=== PATIENT | female | born 1940 | race Caucasian/White ===

== ENCOUNTER 2023-09-03 10:52 | Outpatient (AMB) | payer OTHER, MEDICARE, SELFPAY ==
[2023-09-03 11:31] VITALS: BP 132/60; PULSE 91; O2SAT 93; BMI 27.1
--- NOTE | 2023-09-03 11:31 | HO.NEPHOV ---
HPI HPI Comments History of Present Illness Details I had the privilege of seeing Cassie in consultation for her chronic kidney disease and hypertension. 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 She has longstanding hypertension and is on multiple antihypertensive medications. She has been having edema. Her blood pressure has been at goal. She does not recollect having Doppler of renal arteries. She denies coronary artery disease, carotid stenosis, congestive heart failure, CVA, peripheral arterial disease. She does not have any epistaxis, photosensitivity, hematuria, nephrolithiasis, joint swellings, bone or back pain. She has no history of high serum calcium. She is compliant with her medications. She does not have any orthostatic symptoms. She does not have any shortness of breath, paroxysmal nocturnal dyspnea, orthopnea. She does not take nonsteroidal anti-inflammatories. She otherwise feels well. FORMERLY [facility] Medical History (Updated 09/03/23 @ 13:21 by Rafita Lucas MD) Degenerative joint disease Chronic kidney disease, stage 3 Essential (primary) hypertension Restless leg Mixed hyperlipidemia Hypothyroidism Surgical History (Updated 09/03/23 @ 11:31 by Penny Yepez MA) H/O hernia repair History of partial hysterectomy Family History (Updated 09/03/23 @ 11:35 by Penny Yepez MA) Mother Heart disease Sister Cancer Social History (Updated 09/03/23 @ 11:35 by Penny Yepez MA) Alcohol intake: never Patient Tobacco Use Status: Never used Tobacco Vital Signs 09/03/23 11:31 Height 5 ft 4 in Weight 158 lb BMI 27.1 BP 132/60 Blood Pressure Location Rt brachial Position Sitting Pulse 91 Pulse Source Pulse Oximeter Pulse Oximetry (%) 93 Oxygen Delivery Method Room Air Physical Exam Vital Signs: Last Vital Signs Pulse 91 09/03/23 11:31 BP 132/60 09/03/23 11:31 Pulse Ox 93 09/03/23 11:31 Oxygen Delivery Method Room Air 09/03/23 11:31 BMI result Body Mass Index 27.1 Const General: comfortable and no acute distress Orientation/consciousness: patient oriented x3 HEENT Head: Yes normocephalic Mouth: Normal oral and palatal mucosa present Eyes EOM: EOMs intact bilaterally Neck Neck: Yes supple Resp Auscultation: clear to auscultation bilaterally Cardio Jugular venous distension: no JVD Rate: regular rate GI Palpation (GI): Soft to palpation Auscultation: normal bowel sounds General: Yes no CVA tenderness Back/Spine/Pelvis Back: no CVA tenderness Skin General skin exam: no rashes or lesions noted Neuro General: patient oriented x3 and moves all extremities Extrem General: Yes edema Assessment & Plan Assessment & Plan (1) Essential (primary) hypertension: Code(s): I10 - Essential (primary) hypertension (2) Chronic kidney disease, stage 3: Code(s): N18.30 - Chronic kidney disease, stage 3 unspecified Qualifiers: Chronic kidney disease stage 3 subtype: stage 3a (GFR 45-59) Qualified Code(s): N18.31 - Chronic kidney disease, stage 3a Plan Cassie most likely has chronic kidney disease from vascular disease and age related loss of renal functions. I did not have any recent blood work for review and hence I ordered lab work which she is going to get it done today. I also ordered Doppler of her renal arteries given she is on losartan, amlodipine and metoprolol to control blood pressure. She has been having edema which may be due to amlodipine but I have ordered serum albumin as well as urine protein creatinine ratio. I did not make any medication changes today. I intend to discontinue her amlodipine and optimize her antihypertensive medications with evolving data. More than 50% time spent discussing all these and I answered all her questions. Follow-up appointment given. Orders: Orders Blood Urea Nitrogen Today I10 - Essential (primary) hypertension, N18.30 - Chronic kidney disease, stage 3 unspecified Electrolytes Today I10 - Essential (primary) hypertension, N18.30 - Chronic kidney disease, stage 3 unspecified Calcium Today I10 - Essential (primary) hypertension, N18.30 - Chronic kidney disease, stage 3 unspecified Complete Blood Count Auto Diff Today I10 - Essential (primary) hypertension, N18.30 - Chronic kidney disease, stage 3 unspecified Parathyroid Hormone Intact Today I10 - Essential (primary) hypertension, N18.30 - Chronic kidney disease, stage 3 unspecified Phosphorus Today I10 - Essential (primary) hypertension, N18.30 - Chronic kidney disease, stage 3 unspecified Immunofixation, Random Urine Today I10 - Essential (primary) hypertension, N18.30 - Chronic kidney disease, stage 3 unspecified Creatinine Today I10 - Essential (primary) hypertension, N18.30 - Chronic kidney disease, stage 3 unspecified US renal BI Today I10 - Essential (primary) hypertension, N18.30 - Chronic kidney disease, stage 3 unspecified US renal doppler Today I10 - Essential (primary) hypertension, N18.30 - Chronic kidney disease, stage 3 unspecified Immunofixation Pnl, Serum Today I10 - Essential (primary) hypertension, N18.30 - Chronic kidney disease, stage 3 unspecified Protein Creatinine Ratio, Ur Today I10 - Essential (primary) hypertension, N18.30 - Chronic kidney disease, stage 3 unspecified Albumin Level Today I10 - Essential (primary) hypertension, N18.30 - Chronic kidney disease, stage 3 unspecified Coding Level of Care Code New Pt Level 4 (01172) Diagnoses Essential (primary) hypertension I10 Stage 3a chronic kidney disease N18.31 Chronic kidney disease stage 3 subtype: stage 3a (GFR 45-59) Results Reviewed Nephrology Results: No Data to Display
== END 2023-09-03 12:05 | disposition home or self-care (01) ==
PROVIDERS: Visit Provider Internal Medicine Nephrology
DX: I10 Essential (primary) hypertension (principal); N18.31 Chronic kidney disease, stage 3a
CPT/HCPCS: 99204

== ENCOUNTER → 2023-09-03 10:52 | Outpatient (BNVA) | payer OTHER, MEDICARE, SELFPAY | PROVIDERS: Visit Provider Internal Medicine Nephrology ==

== ENCOUNTER 2023-09-03 12:29 | Outpatient (REF) | payer OTHER, MEDICARE, SELFPAY ==
[2023-09-03 13:26] LABS: MANUAL DIFF FLAG NO
[2023-09-03 13:59] LABS: Basophils Absolute Auto 0.1 X10*3/uL (0.0-0.2); Basophils Percent Auto 0.6 % (0-2); Eosinophils Absolute Auto 0.1 X10*3/uL (0.0-0.4); Eosinophils Percent Auto 0.9 % (0-4); Hematocrit 41.5 % (37.0-47.0); Hemoglobin 14.3 g/dl (12.0-16.0); Imm Gran Abs Auto 0.04 X10*3/uL (0.00-0.03); Imm Gran Pct Auto 0.4 % (0.0-0.4); Lymphocytes Absolute Auto 1.2 X10*3/uL (1.2-4.9); Lymphocytes Percent Auto 10.8 % (20-40); Mean Corpuscular HGB Conc 34.5 g/dl (31.0-35.0); Mean Corpuscular Hemoglobin 32.6 pg (27.0-33.0); Mean Corpuscular Volume 94.7 fL (80.0-98.0); Mean Platelet Volume 10.4 fL (9.4-12.3); Neutrophils Absolute Auto 8.8 x10*3/uL (2.0-8.3); Neutrophils Percent Auto 78.3 % (45-73); Platelet Count 298 X10*3/uL (160-400); Red Blood Count 4.38 X10*6/uL (4.20-5.50); White Blood Count 11.2 X10*3/uL (4.8-10.8)
[2023-09-03 14:28] LABS: Parathyroid Hormone Intact 52.5 pg/mL (8.7-77.1)
[2023-09-03 14:35] LABS: Albumin Level 4.6 g/dL (3.5-5.0); Anion Gap 14 (12-20); Blood Urea Nitrogen 18 mg/dL (9-16); Calcium 10.2 mg/dL (8.4-10.2); Carbon Dioxide 26 mmol/L (22-29); Chloride 102 mmol/L (96-108); Estimated Glomerular Filt Rate 40; Phosphorus 3.5 mg/dL (2.7-4.5); Potassium 4.6 mmol/L (3.3-5.1); Sodium 137 mmol/L (135-145)
[2023-09-05 11:34] LABS: IgA 251 mg/dL (70-320); IgG 1078 mg/dL (600-1540); IgM 120 mg/dL (50-300)
== END 2023-09-03 12:30 | disposition home or self-care (01) ==
LOC: HO.10HDL 12:29
PROVIDERS: Visit Provider Internal Medicine Nephrology
DX: I12.9 Hypertensive chronic kidney disease with stage 1 through stage 4 chronic kidney disease, or unspecified chronic kidney disease (principal); N18.30 Chronic kidney disease, stage 3 unspecified
CPT/HCPCS: 36415; 80051; 82040; 82310; 82565; 82784; 83970; 84100; 84520; 85025; 86334

== ENCOUNTER 2023-09-19 09:00 | Outpatient (REF) | payer MEDICARE, SELFPAY ==
--- NOTE | ~2023-09-19 | US_ITS ---
EXAMINATION: US RETROPERITONEAL LIMITED (RENAL ONLY) CLINICAL INFORMATION: Chronic kidney disease stage III. COMPARISON: None available. TECHNIQUE: Grayscale and color imaging of the kidneys using a curved transducer. Color Doppler imaging of the renal vasculature including waveform spectral analysis. FINDINGS: RIGHT KIDNEY: 10 x 4 x 4.7 cm (SAG x AP x TRV). The kidney is normal in size, contour, and echogenicity. Renal cortical thickness is normal. 2 simple cysts measuring 2.7 x 2 x 2 cm in the lower pole and 1.5 x 1.4 x 1.5 cm in the upper pole. No imaging follow-up recommended. No calculi or focal other parenchymal lesions. No hydronephrosis. LEFT KIDNEY: 9.6 x 4.7 x 3.8 cm (SAG x AP x TRV). The kidney is normal in size, contour, and echogenicity. Renal cortical thickness is normal. No calculi or focal parenchymal lesions. No hydronephrosis. Renal Doppler: Aortic peak systolic velocities 86 cm/s. The right renal artery is patent. Right renal artery peak systolic velocities measure 59, 176 and 84 cm/s proximally, in the midportion and distally. Right renal artery peak systolic velocity is upper normal in the midportion. Right renal artery to aorta ratio is normal and measures 2. Resistive indices of the segmental renal arteries and the right kidney measured 0.8-0.9 and are slightly elevated. Left renal artery peak systolic velocities are normal measure to 126, 102 and 106 cm/s proximally, in the midportion and distally. Left renal artery to aorta ratio is normal and measures 1.5. Resistive indices of the left segmental renal arteries and the the left kidney are normal in measure 0.7-0.8. US/US renal doppler IMPRESSION: Morphologically normal-appearing kidneys. Upper normal right renal artery peak systolic velocity and slightly elevated resistive indices. Normal left renal Doppler exam.
== END 2023-09-19 09:01 | disposition home or self-care (01) ==
LOC: HO.US 09:00
PROVIDERS: Visit Provider Internal Medicine Nephrology
DX: I12.9 Hypertensive chronic kidney disease with stage 1 through stage 4 chronic kidney disease, or unspecified chronic kidney disease (principal); N18.30 Chronic kidney disease, stage 3 unspecified
CPT/HCPCS: 76775; 93975

== ENCOUNTER 2023-10-08 14:15 | Outpatient (AMB) | payer OTHER, MEDICARE, SELFPAY ==
[2023-10-08 14:17] VITALS: BP 122/60; PULSE 77; O2SAT 95; BMI 27.7
--- NOTE | 2023-10-08 14:17 | HO.NEPHOV_ITS ---
Vital Signs 10/08/23 14:17 Height 5 ft 4 in Weight 161 lb 6 oz BMI 27.7 BP 122/60 Blood Pressure Location Rt brachial Position Sitting Pulse 77 Pulse Source Pulse Oximeter Pulse Oximetry (%) 95 Oxygen Delivery Method Room Air Intake Visit Reasons: 1 mo fu w/ abs/ Confirmed Data Analytics Specialist Required: No Accompanied by: Daughter Allergies lisinopril Adverse Reaction (Verified 10/08/23 14:20) Cough HPI Comments Details: I had the privilege of seeing Cassie in follow up for her chronic kidney disease and hypertension. She has longstanding hypertension and is on multiple antihypertensive medications. She has been having edema. Her blood pressure has been at goal. She had Renal USS and Doppler of renal arteries which showed only renal cysts as well as elevated resistive indices . She denies coronary artery disease, carotid stenosis, congestive heart failure, CVA, peripheral arterial disease. She does not have any epistaxis, photosensitivity, hematuria, nephrolithiasis, joint swellings, bone or back pain. She has no history of high serum calcium. She is compliant with her medications. She does not have any orthostatic symptoms. She does not have any shortness of breath, paroxysmal nocturnal dyspnea, orthopnea. She does not take nonsteroidal anti-inflamm atories. She otherwise feels well. FORMERLY [facility], [facility] Medical History (Updated 09/03/23 @ 13:21 by Rafita Lucas MD) Degenerative joint disease Chronic kidney disease, stage 3 Essential (primary) hypertension Restless leg Mixed hyperlipidemia Hypothyroidism Surgical History H/O hernia repair History of partial hysterectomy Family History Mother Heart disease Sister Cancer Social History Alcohol intake: never Patient Tobacco Use Status: Never used Tobacco Physical Exam Vital Signs: Last Vital Signs Pulse 77 10/08/23 14:17 BP 122/60 10/08/23 14:17 Pulse Ox 95 10/08/23 14:17 Oxygen Delivery Method Room Air 10/08/23 14:17 BMI result Body Mass Index 27.7 Const General: comfortable and no acute distress Orientation/consciousness: patient oriented x3 HEENT Head: Yes normocephalic Mouth: Normal oral and palatal mucosa present Eyes EOM: EOMs intact bilaterally Neck Neck: Yes supple Resp Auscultation: clear to auscultation bilaterally Cardio Jugular venous distension: no JVD Rate: regular rate GI Palpation (GI): Soft to palpation Auscultation: normal bowel sounds General: Yes no CVA tenderness Back/Spine/Pelvis Back: no CVA tenderness Skin General skin exam: no rashes or lesions noted Neuro General: patient oriented x3 and moves all extremities Extrem General: Yes no pedal edema Results Reviewed Nephrology Results: Hgb 14.3 g/dl (12.0-16.0) 09/03/23 WBC 11.2 X10*3/uL (4.8-10.8) H 09/03/23 Plt Count 298 X10*3/uL (160-400) 09/03/23 Sodium 137 mmol/L (135-145) 09/03/23 Potassium 4.6 mmol/L (3.3-5.1) 09/03/23 Chloride 102 mmol/L (96-108) 09/03/23 Carbon Dioxide 26 mmol/L (22-29) 09/03/23 BUN 18 mg/dL (9-16) H 09/03/23 Creatinine 1.27 mg/dL (0.5-1.4) 09/03/23 Calcium 10.2 mg/dL (8.4-10.2) 09/03/23 Phosphorus 3.5 mg/dL (2.7-4.5) 09/03/23 PTH Intact 52.5 pg/mL (8.7-77.1) 09/03/23 Renal US 09/19/23 Assessment & Plan Assessment & Plan (1) Chronic kidney disease, stage 3: Code(s): N18.30 - Chronic kidney disease, stage 3 unspecified Category: Medical Qualifiers: Chronic kidney disease stage 3 subtype: stage 3a (GFR 45-59) Qualified Code(s): N18.31 - Chronic kidney disease, stage 3a (2) Essential (primary) hypertension: Code(s): I10 - Essential (primary) hypertension Category: Medical Plan Cassie most likely has chronic kidney disease from vascular disease and age related loss of renal functions. Doppler of her renal arteries showed high resistive indices. She is bothered by the edema by the end of the day from Amlodipine. I reduced her Amlodipine to 5 mg and increased her metoprolol to 50 mg daily. I shall try to wean her off Amlodipine if possible. I did not make any other medication changes today. Follow-up appointment given. Coding Level of Care Code Est Pt Level 4 (43334) Diagnoses Stage 3a chronic kidney disease N18.31 Chronic kidney disease stage 3 subtype: stage 3a (GFR 45-59) Essential (primary) hypertension I10
== END 2023-10-08 14:53 | disposition home or self-care (01) ==
PROVIDERS: Visit Provider Internal Medicine Nephrology
DX: N18.31 Chronic kidney disease, stage 3a (principal); I10 Essential (primary) hypertension
CPT/HCPCS: 99214

== ENCOUNTER → 2023-10-08 14:15 | Outpatient (BNVA) | payer OTHER, MEDICARE, SELFPAY | PROVIDERS: Visit Provider Internal Medicine Nephrology ==

== ENCOUNTER 2024-02-06 10:01 | Outpatient (AMB) | payer OTHER, MEDICARE, SELFPAY ==
--- NOTE | 2024-02-06 10:18 | HO.NEPHOV ---
Vital Signs 02/06/24 10:19 Height 5 ft 4 in Weight 153 lb 4 oz BMI 26.3 BP 160/60 H Blood Pressure Location Rt brachial Position Sitting Pulse 75 Pulse Source Pulse Oximeter Pulse Oximetry (%) 93 Oxygen Delivery Method Room Air Intake Visit Reasons: Ckd stg 3/ 4 MO FU- Conf Media Sales Representative Required: No Accompanied by: Self / Same As Patient Allergies lisinopril Adverse Reaction (Verified 02/06/24 10:21) Cough HPI Comments Details: I had the privilege of seeing Cassie in follow up for her chronic kidney disease and hypertension. She has longstanding hypertension and is on multiple antihypertensive medications. Her blood pressure has been at goal. She had Renal USS and Doppler of renal arteries which showed only renal cysts as well as elevated resistive indices . She denies coronary artery disease, carotid stenosis, congestive heart failure, CVA, peripheral arterial disease. She does not have any epistaxis, photosensitivity, hematuria, nephrolithiasis, joint swellings, bone or back pain. She has no history of high serum calcium. She is compliant with her medications. She does not have any orthostatic symptoms. She does not have any shortness of breath, paroxysmal nocturnal dyspnea, orthopnea. She does not take nonsteroidal anti-inflammatories. She otherwise feels well. FORMERLY [facility] Medical History (Updated 09/03/23 @ 13:21 by Rafita Lucas MD) Degenerative joint disease Chronic kidney disease, stage 3 Essential (primary) hypertension Restless leg Mixed hyperlipidemia Hypothyroidism Surgical History H/O hernia repair History of partial hysterectomy Family History Mother Heart disease Sister Cancer Social History Alcohol intake: never Patient Tobacco Use Status: Never used Tobacco Review of Systems Const All systems reviewed & are unremarkable except as noted in HPI and below Physical Exam Vital Signs: Last Vital Signs Pulse 75 02/06/24 10:19 BP 160/60 H 02/06/24 10:19 Pulse Ox 93 02/06/24 10:19 Oxygen Delivery Method Room Air 02/06/24 10:19 BMI result Body Mass Index 26.3 Const General: comfortable and no acute distress Orientation/consciousness: patient oriented x3 HEENT Head: Yes normocephalic Mouth: Normal oral and palatal mucosa present Eyes EOM: EOMs intact bilaterally Neck Neck: Yes supple Resp Auscultation: clear to auscultation bilaterally Cardio Jugular venous distension: no JVD Rate: regular rate GI Palpation (GI): Soft to palpation Auscultation: normal bowel sounds General: Yes no CVA tenderness Back/Spine/Pelvis Back: no CVA tenderness Skin General skin exam: no rashes or lesions noted Neuro General: patient oriented x3 and moves all extremities Extrem General: Yes no pedal edema Assessment & Plan Assessment & Plan (1) Essential (primary) hypertension: Code(s): I10 - Essential (primary) hypertension Category: Medical (2) Chronic kidney disease, stage 3: Code(s): N18.30 - Chronic kidney disease, stage 3 unspecified Category: Medical Qualifiers: Chronic kidney disease stage 3 subtype: stage 3a (GFR 45-59) Qualified Code(s): N18.31 - Chronic kidney disease, stage 3a Plan Cassie most likely has chronic kidney disease from vascular disease and age related loss of renal functions. Her renal functions are stable. Doppler of her renal arteries showed high resistive indices. She is bothered by the edema by the end of the day from Amlodipine which has gone away after her Amlodipine was reduced to 5 mg daily. She can continue metoprolol 50 mg daily. I shall try to wean her off Amlodipine if possible. I did not make any other medication changes today. Follow-up appointment given. Orders: Orders Creatinine Today I10 - Essential (primary) hypertension, N18.31 - Chronic kidney disease, stage 3a Blood Urea Nitrogen Today I10 - Essential (primary) hypertension, N18.31 - Chronic kidney disease, stage 3a Electrolytes Today I10 - Essential (primary) hypertension, N18.31 - Chronic kidney disease, stage 3a Coding Level of Care Code Est Pt Level 4 (67823) Diagnoses Essential (primary) hypertension I10 Stage 3a chronic kidney disease N18.31 Chronic kidney disease stage 3 subtype: stage 3a (GFR 45-59)
[2024-02-06 10:19] VITALS: BP 160/60; PULSE 75; O2SAT 93; BMI 26.3
== END 2024-02-06 10:50 | disposition home or self-care (01) ==
PROVIDERS: PCP Family Medicine; Visit Provider Internal Medicine Nephrology
DX: I10 Essential (primary) hypertension (principal); N18.31 Chronic kidney disease, stage 3a
CPT/HCPCS: 99214

== ENCOUNTER → 2024-02-06 10:01 | Outpatient (BNVA) | payer OTHER, MEDICARE, SELFPAY | PROVIDERS: PCP Family Medicine; Visit Provider Internal Medicine Nephrology ==

== ENCOUNTER 2024-11-24 08:10 | Outpatient (REF) | payer MEDICARE, SELFPAY ==
--- OUTSIDE RECORDS SUMMARY | 2024-11-24 08:15 | XMS_ITS | Clinical Summary ---
Author Organization [facility], Address [address] [address] Phone Care Team Providers Care Quantitative Developer Name Role Phone Evelyn Argueta [facility] Primary Care Provider [phone] Allergies Active Allergy Reactions Criticality Noted Date Comments Lisinopril Other (see comments) 08/10/2020 Cough Medications amLODIPine (NORVASC) 10 MG tablet Take 10 mg by mouth 1 (one) time each day Active levothyroxine (SYNTHROID, LEVOTHROID) 25 MCG tablet Take 25 mcg by mouth 1 (one) time each day Take as directed Active Cholecalciferol (Vitamin D) 125 MCG (5000 UT) capsule Take 1 tablet by mouth every other day Active cyanocobalamin (VITAMIN B-12) 1000 MCG tablet Take 1,000 mcg by mouth 1 (one) time each day Active Multiple Vitamin (multivitamin) capsule Take 1 capsule by mouth 1 (one) time each day Active metoprolol succinate XL (TOPROL XL) 25 MG 24 hr tablet Take 1 tablet by mouth 1 (one) time each day 02/04/2022 Active losartan (COZAAR) 100 MG tablet Take 1 tablet by mouth 1 (one) time each day 01/08/2022 Active Active Problems Problem Noted Date Diagnosed Date Stage 3b chronic kidney disease 03/11/2023 Simple renal cyst 09/27/2020 Proteinuria 09/27/2020 Hypo-osmolality and hyponatremia 09/27/2020 Essential hypertension Other and unspecified hyperlipidemia Resolved Problems Problem Noted Date Diagnosed Date Resolved Date Stage 3a chronic kidney disease 08/15/2020 03/11/2023 Hypothyroidism 03/11/2023 Family History Medical History Relation Comments Pneumonia Father Rheum arthritis Father Breast cancer Father's Sister Arthritis Mother Heart attack Mother Hypertension Mother Asthma Sister Diabetes Sister Relation Status Comments Father Father's Sister Mother Sister Social History Tobacco Use Types Packs/Day Years Used Date Smoking Tobacco: Never Alcohol Use Standard Drinks/Week Comments Never 0 (1 standard drink = 0.6 oz pur e alcohol) Comments Unknown Sex and Gender Information Value Date Recorded Sex Assigned at Not on file Legal Sex Female 3:45 PM EST Gender Identity Not on file Sexual Orientation Not on file Occupation Industry Job Start Date Job End Date 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) Not on fi le Not on file Not on file Last Filed Vital Signs Vital Sign Reading Time Taken Comments Blood Pressure 135/68 03/12/2023 12:45 PM EDT Pulse 68 03/12/2023 12:45 PM EDT Temperature - - Respiratory Rate 14 03/12/2023 12:45 PM EDT Oxygen Saturation - - Inhaled Oxygen Concentration - - Weight 71.2 kg (157 lb) 03/12/2023 12:45 PM EDT Height 162.6 cm (5' 4 ) 03/12/2023 12:45 PM EDT Body Mass Index 26.95 03/12/2023 12:45 PM EDT Plan of Treatment Health Maintenance Due Date Last Done Comments Pneumococcal Vaccine: 50+ Ye ars (1 of 2 - PCV) 11/22/1959 Influenza Vaccine (Season Ended) 2025 Hepatitis B Vaccine Aged Out No longe r eligible based on patient's age to complete this topic Insurance [employer] MCR Adv PPO ([id number]) Care Teams Quantitative Developer Relationship Specialty Start Date End Date Evelyn Argueta FNP [address] [place] [address] PCP - General Nurse Practitioner 07/19/20
[2024-11-24 08:57] LABS: Anion Gap 12 (12-20); Blood Urea Nitrogen 22 mg/dL (9-16); Carbon Dioxide 26 mmol/L (22-29); Chloride 99 mmol/L (96-108); Estimated Glomerular Filt Rate 42; Potassium 5.1 mmol/L (3.3-5.1); Sodium 132 mmol/L (135-145)
== END 2024-11-24 08:11 | disposition home or self-care (01) ==
LOC: HO.LAB 08:10
PROVIDERS: Visit Provider Internal Medicine Nephrology
DX: N18.31 Chronic kidney disease, stage 3a (principal); I10 Essential (primary) hypertension
CPT/HCPCS: 36415; 80051; 82565; 84520

== ENCOUNTER 2024-12-03 09:44 | Outpatient (AMB) | payer OTHER, MEDICARE, SELFPAY ==
--- NOTE | 2024-12-03 09:58 | HO.NEPHOV ---
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 She has longstanding hypertension and is on multiple antihypertensive medications. Her blood pressure has been at goal. She had Renal USS and Doppler of renal arteries which showed only renal cysts as well as elevated resistive indices . She denies coronary artery disease, carotid stenosis, congestive heart failure, CVA, peripheral arterial disease. She does not have any epistaxis, photosensitivity, hematuria, nephrolithiasis, joint swellings, bone or back pain. She has no history of high serum calcium. She is compliant with her medications. She does not have any orthostatic symptoms. She does not have any shortness of breath, paroxysmal nocturnal dyspnea, orthopnea. She does not take nonsteroidal anti-inflammatories. She otherwise feels well. [facility] Medical History (Updated 12/03/24 @ 10:10 by Rafita Lucas MD) Degenerative joint disease Chronic kidney disease, stage 3 Essential (primary) hypertension Restless leg Mixed hyperlipidemia Hypothyroidism Surgical History H/O hernia repair History of partial hysterectomy Family History Mother Heart disease Sister Cancer Social History Alcohol intake: never Patient Tobacco Use Status: Never used Tobacco Review of Systems Const All systems reviewed & are unremarkable except as noted in HPI and below Physical Exam Vital Signs: Last Vital Signs Pulse 88 12/03/24 09:59 BP 128/60 12/03/24 09:59 Pulse Ox 95 12/03/24 09:59 Oxygen Delivery Method Room Air 12/03/24 09:59 BMI result Body Mass Index 25.7 Const General: comfortable and no acute distress Orientation/consciousness: patient oriented x3 HEENT Head: Yes normocephalic Mouth: Normal oral and palatal mucosa present Eyes EOM: EOMs intact bilaterally Neck Neck: Yes supple Resp Auscultation: clear to auscultation bilaterally Cardio Jugular venous distension: no JVD Rate: regular rate GI Palpation (GI): Soft to palpation Auscultation: normal bowel sounds General: Yes no CVA tenderness Back/Spine/Pelvis Back: no CVA tenderness Skin General skin exam: no rashes or lesions noted Neuro General: patient oriented x3 and moves all extremities Extrem General: Yes no pedal edema Results Reviewed Nephrology Results: Hgb, (12.0-16.0) 14.3 g/dl 09/03/23 WBC, (4.8-10.8) 11.2 X10*3/uL H 09/03/23 Plt Count, (160-400) 298 X10*3/uL 09/03/23 Sodium, (135-145) 132 mmol/L L 11/24/24 Potassium, (3.3-5.1) 5.1 mmol/L 11/24/24 Chloride, (96-108) 99 mmol/L 11/24/24 Carbon Dioxide, (22-29) 26 mmol/L 11/24/24 BUN, (9-16) 22 mg/dL H 11/24/24 Creatinine, (0.5-1.4) 1.21 mg/dL 11/24/24 Calcium, (8.4-10.2) 10.2 mg/dL 09/03/23 Phosphorus, (2.7-4.5) 3.5 mg/dL 09/03/23 PTH Intact, (8.7-77.1) 52.5 pg/mL 09/03/23 Renal US 09/19/23 Assessment & Plan Assessment & Plan (1) Essential (primary) hypertension: Code(s): I10 - Essential (primary) hypertension Category: Medical (2) Chronic kidney disease, stage 3: Code(s): N18.30 - Chronic kidney disease, stage 3 unspecified Category: Medical Qualifiers: Chronic kidney disease stage 3 subtype: stage 3a (GFR 45-59) Qualified Code(s): N18.31 - Chronic kidney disease, stage 3a (3) Hyponatremia: Code(s): E87.1 - Hypo-osmolality and hyponatremia Category: Medical Plan Cassie most likely has chronic kidney disease from vascular disease and age related loss of renal functions. Her renal functions are stable. Doppler of her renal arteries showed high resistive indices. She can continue her current medications. She needs to fluid restrict herself. I did not make any other medication changes today. Follow-up appointment given. Orders: Orders Electrolytes 3 Months E87.1 - Hypo-osmolality and hyponatremia, I10 - Essential (primary) hypertension, N18.31 - Chronic kidney disease, stage 3a Creatinine 3 Months E87.1 - Hypo-osmolality and hyponatremia, I10 - Essential (primary) hypertension, N18.31 - Chronic kidney disease, stage 3a Immunofixation Pnl, Serum 3 Months E87.1 - Hypo-osmolality and hyponatremia, I10 - Essential (primary) hypertension, N18.31 - Chronic kidney disease, stage 3a TSH reflex Free T4 3 Months E87.1 - Hypo-osmolality and hyponatremia, I10 - Essential (primary) hypertension, N18.31 - Chronic kidney disease, stage 3a Cortisol Random 3 Months E87.1 - Hypo-osmolality and hyponatremia, I10 - Essential (primary) hypertension, N18.31 - Chronic kidney disease, stage 3a Blood Urea Nitrogen 3 Months E87.1 - Hypo-osmolality and hyponatremia, I10 - Essential (primary) hypertension, N18.31 - Chronic kidney disease, stage 3a Calcium 3 Months E87.1 - Hypo-osmolality and hyponatremia, I10 - Essential (primary) hypertension, N18.31 - Chronic kidney disease, stage 3a Vitamin D 25-OH Total 3 Months E87.1 - Hypo-osmolality and hyponatremia, I10 - Essential (primary) hypertension, N18.31 - Chronic kidney disease, stage 3a Vitamin D 1,25 dihydroxy 3 Months E87.1 - Hypo-osmolality and hyponatremia, I10 - Essential (primary) hypertension, N18.31 - Chronic kidney disease, stage 3a Coding Level of Care Code Est Pt Level 4 (45380) Diagnoses Essential (primary) hypertension I10 Stage 3a chronic kidney disease N18.31 Chronic kidney disease stage 3 subtype: stage 3a (GFR 45-59) Hyponatremia E87.1
[2024-12-03 09:59] VITALS: BP 128/60; PULSE 88; O2SAT 95; BMI 25.7
--- OUTSIDE RECORDS SUMMARY | 2024-12-03 10:03 | XMS_ITS | Clinical Summary ---
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
== END 2024-12-03 10:17 | disposition home or self-care (01) ==
LOC: HO.HKA 09:45
PROVIDERS: PCP Family Medicine; Visit Provider Internal Medicine Nephrology
DX: I10 Essential (primary) hypertension (principal); N18.31 Chronic kidney disease, stage 3a; E87.1 Hypo-osmolality and hyponatremia
CPT/HCPCS: 99214